=== PATIENT | female | born 1950 | race Caucasian/White ===

== ENCOUNTER 2024-04-21 06:06 | Inpatient (IN) ==
--- NOTE | 2024-04-03 14:59 | PAT Medication Instructions ---
Medication Instructions Date of Service April 03, 2024 Home Medications naproxen sodium 220 mg tablet (Aleve) 220 mg PO DAILY PRN multivitamin 1 tab PO QAM ASK your surgeon for instructions naproxen sodium 220 mg tablet (Aleve) 220 mg PO DAILY PRN DO NOT take the morning of surgery multivitamin 1 tab PO QAM Other Notes NOTHING TO EAT OR DRINK AFTER MIDNIGHT. If you have any questions please call us at [phone] or [phone] or [phone] or [phone]
--- NOTE | 2024-04-07 12:33 | Anesthesiology Consultation ---
Date of Service April 07, 2024 Assessment & Plan (1) Encounter for pre-operative examination: - Infectious disease screening: Per assessment on 04/07/24: No known recent infectious disease contacts or current infectious disease symptoms. - Patient acceptable risk for surgery pending surgeon-ordered PCP preop evaluation (Luis Fernando Kilgore, 04/12). Chart Review Chart Review: Patient seen in Pre Admission Testing Teaching & Discussion Pre-Anesthesia Teaching/Discussion Notes: Instructed NPO after midnight before surgery,except medications with 15 cc of water. Medication instructions provided according to the PAT guidelines. History Surgery Operation Date: 04/21/24 07:45 Proposed Procedures p C5-C6 Anterior Cervical Discectomy and Fusion - Chidi Arshad, Height/Weight Height: 5 ft 1 in Weight: 58.9 kg Allergies Allergy/AdvReac Type Severity Reaction Status Date / Time No Known Allergies Allergy Verified 03/31/24 14:13 Medications Home Medications Medication Instructions Recorded Confirmed Last Taken naproxen sodium 220 mg tablet 220 mg PO DAILY PRN Pain 03/20/20 03/31/24 Unknown (Aleve) multivitamin 1 tab PO QAM 03/31/24 03/31/24 Unknown Past Medical History Medical History Cervical herniated disc Cervical radiculopathy Right arm pain and weakness Chronic obstructive pulmonary disease "Well controlled" History of COVID-19 07/2021: severe flu-like symptoms with severe fatigue > resolved Exercise / Class Metabolic Activity II 4-5 Yardwork/Stairs/Walk up hill (one FS: No CP, no SOB) Past Family History Family History Other No family history of adverse response to anesthesia Past Surgical History Surgical History H/O right cataract extraction History of bilateral tubal ligation History of carpal tunnel release R/L History of colonoscopy History of left cataract surgery History of tooth extraction Full upper plate Hx of bladder repair surgery with sling S/P epidural steroid injection cervical Past Anesthesia History No Hx of Anesthesia Complications and No Family Hx of Anesthesia Complications History of PONV No Hx of PONV and No Hx of Motion Sickness Social History Smoking Status: Current every day smoker tobacco type: cigarettes Smoking cigarettes per day: 6-7 cigarettes/day (trying to decrease) Do You Dip or Chew Tobacco: No Hx Alcohol Use: Yes Alcohol type: wine alcohol intake frequency: holidays/special occasions only Hx Substance Use: No substance use type: does not use Review of Systems Patient denies chest pain, shortness of breath, dyspnea on exertion, fever, chills, cough, wheezing, palpitations. Physical Exam Vital Signs BP 134/74 P 68 TEMP 98.0 SP02 95%RA RESP 18 Physical Mildly decreased cervical extension range of motion. Full TMJ range of motion. TMD > 3.5 finger breaths Mallampati Score I Dentition: full upper denture, missing lower teeth Lungs: clear throughout to auscultation Cardiac: regular rate and rhythm, no murmurs noted Spine: normal Carotid arteries: negative bruit Extremities: no LE edema Lab Results Anesthesia Preop Results Results Anesthesia Widget: WBC 5.79 K/ul (4.8-10.8) 04/07/24 Hgb 12.9 g/dl (12.0-16.0) 04/07/24 Hct 41.3 % (37.0-47.0) 04/07/24 Plt 233 K/uL (130-400) 04/07/24 Na 139 mmol/L (136-145) 04/07/24 K 4.0 mmol/L (3.5-5.1) 04/07/24 Cl 104 mmol/L (98-107) 04/07/24 CO2 29 mmol/L (21-32) 04/07/24 BUN 9 mg/dl (6-23) 04/07/24 Creat 0.61 mg/dl (0.6-1.2) 04/07/24 Glucose Level 96 mg/dl (70-99(Fasting)) 04/07/24 PT 10.2 Seconds (9.0-12.0) 04/07/24 PTT 27 Seconds (21-31) 04/07/24 INR 0.9 (0.9-1.1) 04/07/24 HA1c 6.2 % (4.5-5.6) H 04/07/24 Urine Color Yellow 04/07/24 Urine Appearance Turbid (Clear) A 04/07/24 Urine pH 7.5 (4.5-7.5) 04/07/24 Urine Specific [place] 1.012 (1.000-1.030) 04/07/24 Urine Protein Negative (Negative) 04/07/24 Urine Glucose (UA) Negative (Negative) 04/07/24 Urine Ketones Negative (Negative) 04/07/24 Urine Blood Negative (Negative) 04/07/24 Urine Nitrite Negative (Negative) 04/07/24 Urine Bilirubin Negative (Negative) 04/07/24 Urine Urobilinogen Negative (Negative) 04/07/24 Urine Leukocyte Esterase Negative (Negative) 04/07/24 Urine WBC (Auto) 0-5 /hpf (0-5) 04/07/24 Urine RBC (Auto) 0-2 /hpf (0-2) 04/07/24 Urine Hyaline Casts (Auto) 0-2 /lpf (0-2) 04/07/24 Urine Epithelial Cells (Auto) 0-2 /hpf (0-2) 04/07/24 Urine Bacteria (Auto) None Seen (None Seen) 04/07/24 Blood Type O Positive 04/07/24 Antibody Screen NEGATIVE 04/07/24 Testing Electrocardiogram Date: 04/07/24 NSR at 66bpm. "Normal ECG" Chest X-Ray Date: 04/07/24 FINDINGS: Cardiac silhouette is normal. Mild hyperinflation with diaphragmatic flattening. There are a few calcified pulmonary granulomata noted within the left lung which are subcentimeter. No pneumothorax or pleural effusion. No airspace consolidation typical for pneumonia. Bones appear grossly intact. IMPRESSION: No acute process.
[2024-04-21] MEDS: LR 15ML/HR IV SCH (06:31)
[2024-04-21] MEDS: GABAPENTIN 300 MG CAP PO SCH (06:31)
[2024-04-21] MEDS: LR 60ML/HR IV SCH (06:32)
[2024-04-21] MEDS: CeleBREX 200 MG CAP PO SCH (06:32)
[2024-04-21] MEDS ORDERED: ePHEDrine sulfate 50 MG/ML AMP IV PRN (06:36)
[2024-04-21] MEDS ORDERED: ONDANSETRON INJ 2 MG/ML 2 ML VIAL IV PRN ×2 (06:36→11:18)
[2024-04-21] MEDS ORDERED: ATROPINE SULFATE 0.1 MG/ML 10ML SYR IV PRN (06:36)
[2024-04-21] MEDS ORDERED: ROCURONIUM BROMIDE 10 MG/ML 5 ML VIAL IV ONE ×2 (07:10→09:01)
[2024-04-21] MEDS ORDERED: fentaNYL citrate PF 100 MCG/2 ML VIAL ONE (07:10)
[2024-04-21] MEDS ORDERED: PROPOFOL IV EMULSION 10 MG/ML 20 ML VIAL IV ONE ×2 (07:10→09:01)
[2024-04-21] MEDS ORDERED: LIDOCAINE 2% 2 ML VIAL/AMP(20MG/ML) INFIL ONE (07:10)
--- NOTE | 2024-04-21 07:37 | History & Physical Bridge Note ---
Date of Service April 21, 2024 History & Physical Bridge Note I have examined the patient, reviewed the History & Physical and in the interval since the performance of the History & Physical I have noted the following changes of clinical significance: no changes noted
--- NOTE | 2024-04-21 07:38 | History & Physical Report ---
Date of Service April 21, 2024 Assessment & Plan (1) Cervical stenosis of spinal canal: Plan: C5-C6 anterior cervical discectomy and fusion History of Present Illness Chief Complaint: Neck and arm pain Primary Care Provider: Lisa Villarreal MD This is a 73-year-old female presents with chronic persistent neck and arm pain after failing course of nonoperative care she is here for surgical invention. Allergies Allergy/AdvReac Type Severity Reaction Status Date / Time No Known Allergies Allergy Verified 04/21/24 06:24 Home Medications Medication Instructions Recorded Confirmed Type naproxen sodium 220 mg tablet 220 mg PO DAILY PRN Pain 03/20/20 04/21/24 History (Aleve) multivitamin 1 tab PO QAM 03/31/24 04/21/24 History Past Med/Surg History Problem List (Updated 04/21/24 @ 07:38 by Chidi Arshad DO) Cervical stenosis of spinal canal Encounter for pre-operative examination Medical History Cervical herniated disc Cervical radiculopathy Right arm pain and weakness Chronic obstructive pulmonary disease "Well controlled" History of COVID-19 07/2021: severe flu-like symptoms with severe fatigue > resolved Surgical History H/O right cataract extraction History of bilateral tubal ligation History of carpal tunnel release R/L History of colonoscopy History of left cataract surgery History of tooth extraction Full upper plate Hx of bladder repair surgery with sling S/P epidural steroid injection cervical Family History Other No family history of adverse response to anesthesia Social History Smoking Status: Current every day smoker Tobacco Type: Cigarettes Cigarettes Per Day: 6-7 cigarettes/day (trying to decrease); Second Hand Exposure: No; Do You Dip or Chew Tobacco: No; Tobacco Cessation Education Requested by Patient: No Hx Alcohol Use: Yes Alcohol type: wine Hx Substance Use: No Preferred Language: [place] Islander Communication Ability: Effective Print Project Manager Required: No Beliefs That Will Affect Care: None Current Living Situation: Alone Other Information That Helps Us Care for You: No Feels Safe at Home: Yes Safety Concerns: Feels Safe At This Time Assistive Devices: Denture - Upper and Glasses Physical Exam Physical Exam: Patient is alert and oriented Heart regular in rhythm Lungs clear Results & Data Results & Data Vital Signs (Past 12 Hours) Vital Signs Temp Pulse Resp BP Pulse Ox O2 Del Method 04/21/24 06:36 36.6 C 68 18 164/89 H 97 Room Air
[2024-04-21] MEDS: ceFAZolin 2000MG 2,000 MG/15 ML SYR IV SCH (07:49)
[2024-04-21] MEDS: ceFAZolin 330 MG/ML 1 GM VIAL ONE (08:45)
[2024-04-21] MEDS: FLOSEAL HEMOSTATIC MATRIX 10ML TOP ONE (08:51)
[2024-04-21] MEDS ORDERED: ONDANSETRON INJ 2 MG/ML 2 ML VIAL ONE (08:59)
[2024-04-21] MEDS ORDERED: DEXAMETHASONE SOD INJ 4 MG/ML VIAL ONE (08:59)
[2024-04-21] MEDS ORDERED: SUGAMMADEX SODIUM 200 MG/2 ML VIAL IV ONE (09:00)
--- NOTE | 2024-04-21 09:02 | Operative Report ---
Post Operative Report Pre & Post Diagnosis Operation Date: 04/21/24 07:45 Pre-Op Diagnosis: cervical spinal stenosis with nucleus pulposus and radiculopathy Post-Op Diagnosis: Same I identified the patient and participated in the time-out.: Yes Procedure Operation Date: 04/21/24 07:45 Actual Procedures #1 anterior cervical discectomy with bilateral foraminotomies C5-C6. #2 anterior cervical basis C5-C6 per #3 placement of Spira 9 mm cage filled with os design C5-C6. #4 application of is plate and screws across C5-C6. Surgeon Chidi Arshad, Cane Weigher Helper John Cleary Estimated Blood Loss 25 Findings Consistent with Post-Op Diagnosis Specimens None Indications This is a 73-year-old female presents problems diagnosis after failing course of nonoperative care is here for surgical invention. Description of Procedure Patient was met with identified informed consent obtained. Patient was then taken to the operative suite underwent ablation placed in spine position on the Nhan table with a head Royal head men's tennis coach. All bony promises well-padded eyes inspected to ensure no external pressure placed upon them. This point the anterior cervical spine was prepped and draped in a sterile fashion. The assistance of fluoroscopy identified the C5-C6 disc base and a transverse incision was placed along the right anterior aspect of the cervical spine overlying his region. Blunt dissection with assistance of bipolar electrocautery is performed to expose the anterior cervical spine at C5-C6. Self-retaining retractors placed. Informed complete discectomy C5-C6 out to the uncovertebral joints bilaterally. [place] distracting pins utilized to assist in visualization. I removed all posterior annular fibers longitudinal ligament bilateral foraminotomies performed. Endplates burred to subcortical bleeding bone and 9 mm spiral cage filled with os design bone graft apposition. Distracting and pressors removed and the plate and screws applied with the assistance of fluoroscopy. The incision was then copiously irrigated explored to ensure no damage to surrounding structures or remaining bleeding. 10 round NED drain inserted. The incision was then closed with 2 Vicryl in the fascia and 4 Monocryl for final skin closure. Steri-Strips sterile dressing placed. Patient waken taken to PACU stable condition. Please note spinal cord monitoring was utilized after procedure no changes noted. Lastly John Cleary was present throughout the entire procedure and all the patient positioning complex portion of the surgery and final skin closure. Im ordering 10 grams of Triple Lott Collagen Powder ([facility] [id number]) to treat an incision wound that was caused by a spine procedure. The incision is approximately 2 cm(W) x 4 cm(L) into the joint (D) in size and is a full thickness wound. Triple Lott collagen comes in 1 gram packets so 10 packets were ordered. Given the size of the wound, with light to moderate exudate I chose to order a 10 day supply. The patient will be provided instructions for proper application of the collagen wound kit. The patient will be asked to apply the collagen powder daily and then cover it with sterile dressings dispensed. Collagen was selected as I expect the collagen to attract monocytes and fibroblasts, act as a sacrificial substrate for MMPs, and ultimately proved a matrix for tissue and vessel growth. The collagen will act as a primary dressing in this scenario. It is medically necessary for proper healing of these wounds to improve bioavailability and contact with each wound surface, this is also to help prevent infection of wounds and promote healing ultimately leading to a better healing outcome and limit the risk of infection. I attest to the content of the Intraoperative Record and any orders documented therein. Any exceptions are noted below.
[2024-04-21] MEDS: fentaNYL citrate PF 100 MCG/2 ML VIAL IV PRN (09:28)
--- NOTE | 2024-04-21 10:13 | Fluoroscopy Report ---
FL cervical 2-3V CLINICAL HISTORY: C5-C6 ACDF TECHNIQUE: 2 views were obtained with the C-arm in the OR with the above procedure. Total fluoroscopy time was 10.2 seconds. Radiation dose was 0.78 mGy. Comparison: Comparison is made to chest radiograph 04/07/2024 FINDINGS/IMPRESSION: Intraoperative images were obtained of the ACDF placement at C5-C6. Please correlate with intraoperative fluoroscopy and operative report. ACT 112: Negative or not required by law. Electronically signed by: Ar Diaz M.D. 04/21/2024 10:12 AM
--- NOTE | 2024-04-21 10:16 | Anesthesiology Progress Note ---
Date of Service April 21, 2024 Anesthesia Post Procedure Vital Signs Vital Signs: Temp Pulse Pulse Resp BP BP Pulse Ox 04/21/24 10:15 65 12 147/79 H 96 04/21/24 10:05 63 12 154/61 H 96 04/21/24 09:55 66 10 L 162/71 H 92 04/21/24 09:45 64 12 152/70 H 96 04/21/24 09:35 66 12 170/73 H 97 04/21/24 09:25 67 12 191/75 H 100 04/21/24 09:18 96.8 F L 69 14 173/74 H 95 04/21/24 06:36 97.9 F 68 18 164/89 H 97 O2 Del Method O2 Flow Rate 04/21/24 10:15 Nasal Cannula 3 04/21/24 10:05 Nasal Cannula 3 04/21/24 09:55 Nasal Cannula 3 04/21/24 09:45 Oxymask 3 04/21/24 09:35 Oxymask 4 04/21/24 09:25 Oxymask 6 04/21/24 09:18 Oxymask 6 04/21/24 06:36 Room Air Pain Intensity Anterior Neck: Pain Intensity: 5 Transfer of Care Handoff Completed per policy Notes Mental Status: alert / awake / arousable and participated in evaluation Patient Amnestic to Procedure: Yes Nausea / Vomiting: adequately controlled Pain: adequately controlled Airway Patency, RR, SpO2: stable & adequate BP & HR: stable & adequate Hydration State: stable & adequate Anesthetic Complications: no major complications apparent and Pt Satisfied with anesthetic care
--- OUTSIDE RECORDS SUMMARY | 2024-04-21 10:50 | External Medical Summary | Summary of Care ---
Author Name Unknown Organization [facility] Address [address] [place] [address] Phone [phone] Care Team Providers Care Customs Brokerage Manager Name Role Phone Lisa Villarreal MD Primary Care Provider [phone] Reason for Visit * Reason Onset Date Comments Preop Pt Assessment 04/12/2024 Physical bef ore surgery HISTORY and PHYSICAL 04/12/2024 Encounter Details Date Type Department Care Team (Late st Contact Info) Description 04/12/2024 11:00 AM EDT [facility] [address] [facility] [place] [address] Mandeep Lee MD [address] [place] [address] Pre-operative examination*; Osteoarthritis of spine with radiculopathy, cervical region Allergies No known active allergiesdocumented as of this encounter (statuses as of 04/13/2024) Medications Medication Sig Dispensed Refills Start Date End Date Status Fluticasone Propionate 50 MCG/ACT Nasal Suspension (Flonase)Indication s:Acute serous otitis media of left ear, recurrence not specified Administer 2 Sprays into each nostril in the morning. 11.1 mL 3 11/02/2022 4 Discontinue d(Medicatio n List Clean Up) Vitamin D3 1000 UNIT Oral CapsuleIndications: Vitamin D insufficiency Take 1 Capsule by mouth daily. 09/28/2023 4 Discontinue d(Medicatio n List Clean Up) Naproxen Sodium 220 MG Oral Tablet (Aleve) Take 2 Tablets by mouth 2 times a day with morning and evening meals. 4 Discontinue d(Medicatio n List Clean Up) diazePAM 5 MG Oral Tablet (Valium)Indications :Cervical radiculopathy Take 1 tab 1 hour prior to scheduled procedure 1 Tablet 10/13/2023 4 Discontinue d(Medicatio n List Clean Up) tiZANidine HCl 2 MG Oral Tablet (Zanaflex) Take 1 Tablet by mouth every 12 hours as needed for Muscle spasms. 40 Tablet 11/23/2023 4 Discontinue d(Medicatio n List Clean Up) documented as of this encounter (statuses as of 04/13/2024) Active Problems Problem Noted Date Diagnosed Date Vitamin D insufficiency 09/28/2023 Tubular adenoma of colon 03/06/2020 Age-related osteoporosis wit hout current pathological fracture 01/16/2019 Overview: By DEXA ADVANCE DIRECTIVE INFORMATION 07/11/2005 Overview: No, Advance Directive brochure offered , patient declined. Family history of ischemic heart disease 003 Tobacco use disorder 12/04/2002 Hyperlipidemia with target LDL less than 130 Overview: ICD-10 update of inactive term Female stress incontinence Vaginal prolapse documented as of this encounter (statuses as of 04/13/2024) Resolved Problems Problem Noted Date Diagnosed Date Resolved Date Duodenitis 05/01/2011 12/14/2018 Overview: per UGI at ICD-10 update of inactive term Carpal tunnel syndrome 12/27/200712/14 Overview: Left on EMG Family history of other card iovascular diseases 07/11/2005 09/11/2010 Overview: ICD-10 update of inactive term EXT HEMRRHOID W COMP NEC 12/04/200206/2019 documented as of this encounter (statuses as of 04/13/2024) Immunizations Name Administration Dates Next Due Season Influenza, Cell Cultu re, 18+ Yrs, With Preserv (Flucelvax) 09/25/2013 Seasonal Influenza, Quadriva lent, No Preserve, IM 05/18/2016,06/17/2015 Seasonal Influenza, Split, I IV3, With Preserve, Inj 10/03/2014,09/11/2011,07/04/2009, 0 08,06/25/2007(Deferred: - Done Elsewhere) TD - Tetanus/Diptheria (ADULT) 03/19/2003 TDAP (age 10 and older)(Boostrix) 05/16/2022 TDAP, Age 7 and older, IM (Adacel) 12/25/2011 documented as of this encounter Social History Tobacco Use Types Packs/Day Years Used Date Smoking Tobacco: Every Day Cigarettes 0.5 34 Smokeless Tobacco: Never Tobacco Cessation:Ready to Q uit: Not Asked; Counseling Given: Not Answered Comments:hasn't smoked in approx 2-3 weeks Alcohol Use Standard Drinks/Week Comments No 0 (1 standard drink = 0.6 oz pur e alcohol) PHQ-2 Answer Date Recorded PHQ Adult Total Score 0 09/27/2023 Hunger Vital Sign Answer Date Recorded Within the past 12 months, y ou worried that your food would run out before you got the money to buy more. Never true 09/27/19 24 Within the past 12 months, t he food you bought just didn't last and you didn't have money to get more. Never true 09/27/2023 Childcare Answer Date Recorded Do you feel overwhelmed with taking care of a child, family member or friend? No 09/27/2023 Does your family need help f inding childcare? (Household - for ages 0-17 years) Not on file 09/27/2023 Clothing Answer Date Recorded Have you been unable to get clothing when it was really needed? No 09/27/2023 Is your family able to get c lothes or diapers when needed? (Household - for ages 0-17 years) Not on file 09/27/2023 Personal Safety Answer Date Recorded Do you feel unsafe or have concerns for your saf ety? No 09/27/2023 Do you have concerns for you r family's safety? (Household - for ages 0-17 years) Not on file 09/27/2023 Utilities Answer Date Recorded Do you have trouble paying y our heating, water, or electric bill? No 09/27/2023 Is your family able to pay t he heat, water, or electric bill? (Household - for ages 0-17 years) Not on file 09/27/2023 Does your family have access to good internet? (Household - for ages 0-17 years) Not on file 09/27/2023 Employment Status Answer Date Recorded Are you unemployed or without regular income? No 09/27/2023 Does the household have a re gular source of income? (Household - for ages 0-17 years) Not on file 09/27/2023 Social Connections Answer Date Recorded How often do you feel lonely or isolated from th ose around you? Rarely 09/27/2023 Financial Resource Strain Answer Date R ecorded Do you have any trouble payi ng for your medications, or do you think you might in the future? No 09/27/2023 Does your family have troubl e paying for medicine? (Household - for ages 0-17 years) Not on file 09/27/2023 Transportation Needs Answer Date Record ed READ ONLY Do you have troubl e getting a ride to medical visits or work? Never True 09/27/2023 Does your family have a hard time getting a ride to doctors visits? (Household - for ages 0-17 years) Not on file 09/27/2023 Has lack of transportation k ept you from medical appointments, meetings, work, or from getting things needed for daily living? Check all that apply. (Adult - for ages 18 years and over) Not on file 09/27/2023 Do you (or your family) have trouble finding or paying for a ride (transportation)? (Household - for ages 0-17 years) Not on file 09/27/2023 Housing Stability Answer Date Recorded Do you currently live in a s helter or have no steady place to sleep at night? No 09/27/2023 READ ONLY Do you think you a re at risk of becoming homeless? No 09/27/2023 Does your family worry about paying for your home or becoming homeless? (Household - for ages 0-17 years) Not on file 0 09/27/2023 Are you homeless or worried that you might be in the future? (Adult - for ages 18 years and over) Not on file Are you (or your family) huy eless or worried that you might be in the future? (Household - for ages 0-17 years) Not on file Food Insecurity Answer Date Recorded Do you need food for this week? No 09/27/2023 Are you able to get enough f ood for your family? (Household - for ages 0-17 years) Not on file 09/27/2023 Does your family need food t his week? (Household - for ages 0-17 years) Not on file 09/27/2023 Do you always have enough fo od for your family? (Household - for ages 0-17 years) Not on file 09/27/2023 Sex and Gender Information Value Date Recorded Sex Assigned at Female 02/28/2021 10:37 AM EDT Gender Identity Female 02/28/2021 10:37 AM EDT Sexual Orientation Straight 02/28/2021 10 :37 AM EDT Job Start Date Occupation Industry Not on file Not on file Not on file documented as of this encounter Last Filed Vital Signs Vital Sign Reading Time Taken Comments Blood Pressure 130/70 04/12/2024 11:06 AM EDT Pulse 82 04/12/2024 11:06 AM EDT Temperature 35.7 C (96.3 F) 04/12/2024 1 1:06 AM EDT Respiratory Rate 20 04/12/2024 11:0 6 AM EDT Oxygen Saturation 97% 04/12/2024 11: 06 AM EDT Inhaled Oxygen Concentration - - Weight 58.4 kg (128 lb 12.8 oz) 024 11:06 AM EDT Height 154.9 cm (5' 1") 04/12/2024 11:0 6 AM EDT Body Mass Index 24.34 04/12/2024 11:06 AM EDT documented in this encounter Progress Notes * Micaela Magdaleno LPN - 04/13/2024 6:02 PM EDT Pts pre op clearance form and EKG faxed to [facility] * Mandeep Lee MD - 04/12/2024 8:04 AM EDT Images from the original note were not included. Pre-Operative Medical Evaluation Procedure Information Type of Surgery: C5-C6 Anterior Cervical discectomy and fusion Referring Physician / Surgeon: [place]. Chidi Arshad [facility] [place] of procedure: 04/21/2024 Brief History of Present Illness: Neck, R-shoulder pain, numbness down R-arm into fingers Review of Systems: Constitutional: Negative Eyes: Negative Ears: Negative and No loss of hearing Nose: Negative Mouth/Throat: Negative, No difficulty swallowing, No snoring, No history of sleep apnea, No historyof difficult intubation, Upper teeth dentures Neck: Negative and No known carotid artery disease Pulmonary: No shortness or breath, No history of pulmonary embolism, No history of asthma, and SMOKER 0.5 pack per day, last 10 days cut down to 6 cigarettes a day Cardiac: No chest pain, No angina, No syncope, No palpitations, No shortness of breath, No orthopnea, and No edema GI/Abd: No dysphagia, No abdominal pain, No melana or hematochezia, No significant heartburn, and No history of liver disease Vascular: Negative Hematologic: No coagulation disorder, No anemia, and No abnormal bleeding Musculoskeletal: Negative and see HPI Skin: negative Neurologic: No syncope Endocrine No Diabetes and No Thyroid abnormalities, denies history and/or Fhx of malignant hyperthermia Psychiatric: No depression and No anxiety Allergy/Immunology: No contrast dye allergy and No wheezing, sneezing or itchy eyes Post Surgery Plan: Daughters will accompany to surgery; surgery requires overnight stay; post surgery will stay with daughter Medical History Problem List: Vitamin D insufficiency (09/28/2023) Tubular adenoma of colon (03/06/2020) Age-related osteoporosis without current pathological fracture (2018) Duodenitis (05/01/2011) Carpal tunnel syndrome (12/27/2007) ADVANCE DIRECTIVE INFORMATION (07/11/2005) Family history of other cardiovascular diseases (07/11/2005) EXT HEMRRHOID W COMP NEC (12/04/2002) Family history of ischemic heart disease (12/04/2002) Tobacco use disorder (12/04/2002) Hyperlipidemia with target LDL less than 130 Female stress incontinence Vaginal prolapse Current Medications No current outpatient medications on file. Allergies: Patient has no known allergies. Past Medical History: has a past medical history of Age-related osteoporosis without current pathological fracture (01/16/2019), Age-related osteoporosis without current pathological fracture (12/2021), Carpal tunnel syndrome, Duodenitis without mention of hemorrhage (05/01/2011), External hemorrhoids with other complication (1990), Fam hx-cardiovas dis NEC, Female stress incontinence (09/2014), Hyperlipidemia LDL goal < 130, Tubular adenoma of colon (03/2020), Vaginal prolapse (10/2015), and Vitamin D insufficiency (09/27/2023). Past Surgical History: has a past surgical history that includes carpal tunnel surgery (1986); ligate/cut oviduct(s) (1977); dexa scan/bone mineral preiph (02/06); colonoscopy (08/19/07); emg 1 extremity (12/12); NM Myocardial Perfusion SPECT Multiple with Pharmacologic Intervention (02/21/10); emg 1 extremity (04/09/10); Fluoro Upper GI with KUB (05/01/11); EGD, Flexible, w/Biopsy (07/20/11); repair of vagina (N/A, 10/21/2015); repair bladder defect (N/A, 10/21/2015); genital surgery procedure nec (N/A, 07/22/2016); DEXA Scan Bone Mineral Axial (01/2019); remove cataract, insert lens prosth (Left, 04/02/2020); Colonoscopy, Diagnostic (Rectum) (N/A, 04/08/2020); remove cataract, insert lens prosth (Right, 04/23/2020); and Inject Dx/Ther Substance Interlaminar Cervical/Thoracic W Image Guide (N/A, 11/01/2023). Social History: reports that she has been smoking cigarettes. She has a 17 pack-year smoking history. She has neverused smokeless tobacco. She reports that she does not drink alcohol and does not use drugs. Family History: family history includes COPD in her other; Cancer in her aunt (unspecified); Heart Disorder in her brother, father, and mother; Renal Hx in her mother; brittle bones (OI) in an other family member; kidney stones in her father. Anesthesia History Type of Anesthesia: General Anesthesia reaction: No History of surgical complications: None Personal history of venous thromboembolic disease: None Physical Exam Vitals: 04/12/24 1106 Temp: 35.7 C (96.3 F) Pulse: 82 Resp: 20 SpO2: 97% BP: 130/70 BMI: 24.35 Physical Exam: General: alert, healthy, no distress, well nourished, comfortable, and cooperative Head: Normocephalic, No masses, lesions, tenderness or abnormalities Eye Exam: PERRLA, extraocular movements intact, conjunctiva are pink and non- injected, sclera clear Oropharynx: no exudate, no erythema, lips, buccal mucosa, and tongue normal, and mucous membranes are moist Neck: supple, no adenopathy, thyroid normal size, non-tender, without nodularity Lymph: no palpable lymphadenopathy Heart: regular rate & rhythm, no murmur, and no gallops Lungs: lungs clear to auscultation Extremities: no joint deformities, effusion, or inflammation, no edema Neuro Exam: alert & oriented x 3 with fluent speech, no focal motor/sensory deficits, gait normal, reflexes normal and symmetric Skin: no rashes or significant lesions Offsite Labs reviewed and are significant for: A1c 6.2 EKG by my review is significant for: Pending Surgical Risk Scoring Revised Cardiac Risk Index (RCRI) High-risk type of surgery (examples include vascular and any open intraperitoneal or intrathoracic procedures): 0=No History of ischemic heart disease (history of myocardial infarction or positive exercise test, current compliant of chest pain considered to be secondary to myocardia ischemia, use of nitrate therapy, or ECG with pathological Q waves; do not count prior coronary revascularization procedure unless one of the other criteria for ischemic heart disease is present): 0=No History of heart failure: 0=No History of cerebrovascular disease: 0=No Diabetes mellitus requiring treatment with insulin: 0=No Preoperative serum creatinine >2.0 mg/dL (177 micromol/L): 0=No Pt has revised cardiac index score of: No Risk Factors- 0.4% (95% CI: 0.1-0.8) Screening for Obstructive Sleep Apnea (STOP-BANG) Do you Snore loudly? 1=Yes Do you often feel Tired, Fatigued, or Sleep? 0=No Has anyone Observed you Stop Breathing or Choking/Gasping during sleep? 0=No Do you have or are you being treated for High Blood Pressure? 0=No BMI over 35? 0=No Age older than 50? 1=Yes Neck size large? (For males - 17 inches or larger, For females - 16 inches or larger) 0=No Male? 0=No Score 0-2:low risk NOEMI, 3-4: intermediate risk of NOEMI, 5-8: high risk NOEMI 1 Assessment and Plan Functional Assessment They are able to walk up a flight of stairs, walk two blocks at a moderate pace, do heavy house work like vacuuming, and grocery shop. The patient's functional status is good (greater than 4 METS). 1 MET: 4 METs: 4-10 METs: Can take care of self, such as eat, dress or use the toilet. Can walk to block or go up a flight of steps. Can do heavy house work. Surgical Risk Assessment Patient is low medical risk for the listed procedure. Medication adjustments: No medications are prescribed through our practice Additional consults or testing: None [facility] Labs and EKG wnl I do not expect any medical complications from planned procedure I have discussed the patient's management with the medical trainee and agree with the note. Please refer to the documented findings and plan of care. This patient's visit today consisted of an [facility]. I was present with the resident during the history and exam and confirm the findings. Lisa Villarreal MD documented in this encounter Nursing Notes * Merary Rios CCMA - 04/12/2024 11:05 AM EDT Chief Complaint Patient presents with Preop Pt Assessment Physical before surgery HISTORY and PHYSICAL Patient has been verbally educated on the need or importance of Immunizations: pneumoccal, shingx, and has declined topic(s). documented in this encounter Plan of Treatment Upcoming Encounters Date Type Department Care Team (Late st Contact Info) Description 10/16/2024 3:20 PM EST Office Visit [address] [address] Lisa Villarreal MD [address] [place] [address] Scheduled Orders Name Type Priority Associated Diagnoses Orde r Schedule EKG EKG Routine Pre-operative examination Expected: 04/12/2024, Expires: 05/13/2025 Scheduled Procedures Name Priority Associated Diagnoses Date/Ti me COLONOSCOPY FLEXIBLE PROXIMA L DIAGNOSTIC Recall History of colonic polyps Health Maintenance Due Date Last Done Comments Pneumococcal Vaccine: 65+ Years (1 of 2 - PCV) 1958 Cologuard 1997 Sigmoidoscopy 1997 Zoster Vaccines (1 of 2) 2002 Fecal Occult Blood Test 10/19/2017 10/19/19 17, 10/09/2015, 10/03/2014, Additional history exists Adult Wellness Visit 2018 *BISPHONATE OR OTHER ACCEPTABLE MEDICATION NEEDED FOR OSTEOPOROSIS (REFER TO SMARTSET #1146) 03/05/2021 COVID-19 Vaccine ( season) 2023 DXA Scan 12/17/2023 12/16/2021, 01/16/2019 Influenza Vaccine (FLU shot) (#1) 2024 05/18/2016, 06/17/2015, 10/03/2014, Additional history exists Depression Screening 09/27/2024 09/27/2023 Mammogram 10/07/2024 10/07/2023, 05, 12/15/2021, Additional history exists Colonoscopy 04/08/2025 04/08/2020, 0811/2019, 08/19/2007 Colorectal Cancer Screening 04/08/2025 Lipid Panel 09/27/2028 09/27/2023, 0204/2023, 03/13/2021, Additional history exists DTaP,Tdap,and Td Vaccines (3 - Td or Tdap) 05/16/2032 05/16/2022, 12/25/2011, 03/19/2003 RETIRED - COLONOSCOPY-EVERY 5 YRS AGES 18-100 Discontinued 04/08/2020, 04/08/2020, 08/19/2007 VITAMIN D LEVEL ONCE IN A LIFETIME-USE SMARTSET# 87020 Completed 09/27/2023, 03/13/2021 HPV (Gardasil) Vaccine Aged Out No lo nger eligible based on patient's age to complete this topic Hepatitis B Vaccine Aged Out No longe r eligible based on patient's age to complete this topic MENINGOCOCCAL (MENACTRA/MENVEO) Aged Out No longer eligible based on patient's age to complete this topic documented as of this encounter Medical Devices Implanted Type Area Clay Molder Device Identifier Shelf Expiration Date Model / Serial / Lot Obtryx Ii System - [id number] Implanted:Qty: 1 on 10/21/2015 by Annamarie Parker MD at OR [facility] N/A: Pelvis [employer] 07/25/2018 [id number] / / [id number] documented as of this encounter Visit Diagnoses Diagnosis Pre-operative examination- Primary Preoperative examination, unspecified Osteoarthritis of spine with radiculopathy, cervical region documented in this encounter Advance Directives * Full Code (Latest Code Status on File) Date Activated Date Inactivated Comments 07/22/2016 12:43 PM 07/22/2016 8:37 PM This orde r reflects the patients wishes and were consensually agreed upon. Question Answer Comments Discussion of Advance Directives occurred with: Patient Does the patient have a Living Will? No Does the patient have Health Care Power of Attor berry? No * Full Code Date Activated Date Inactivated Comments 07/22/2016 11:09 AM 07/22/2016 12:43 PM This ord er reflects the patients wishes and were consensually agreed upon. Question Answer Comments Discussion of Advance Directives occurred with: Patient Does the patient have a Living Will? No Does the patient have Health Care Power of Attor berry? No * Full Code Date Activated Date Inactivated Comments 10/21/2015 10:45 AM 10/22/2015 2:52 PM This order reflects the patients wishes and were consensually agreed upon. Question Answer Comments Discussion of Advance Directives occurred with: Not Discussed Does the patient have a Living Will? No Does the patient have Health Care Power of Attor berry? No Care Teams Customs Brokerage Manager Relationship Specialty Start Date End Date Lisa Villarreal MD [address] [facility] [address] [place] [address] PCP - General 10/04/02 documented as of this encounter
--- OUTSIDE RECORDS SUMMARY | 2024-04-21 10:50 | External Medical Summary | Summary of Care ---
Author Name Unknown Organization [facility] Address [address] [place] [address] Phone [phone] Care Team Providers Care Staff Design Engineer Name Role Phone Lisa Villarreal MD Primary Care Provider [phone] Reason for Visit * Reason Onset Date Comments Preop Pt Assessment 04/12/2024 Physical bef ore surgery HISTORY and PHYSICAL 04/12/2024 Encounter Details Date Type Department Care Team (Late st Contact Info) Description 04/12/2024 11:00 AM EDT Office Visit [facility] [address] [place] [address] Mandeep Lee MD [address] [place] [address] Pre-operative examination* Allergies No known active allergiesdocumented as of this encounter (statuses as of 04/12/2024) Medications Medication Sig Dispensed Refills Start Date [...] as of this encounter (statuses as of 04/12/2024) Active Problems Problem Noted Date Diagnosed Date [...] as of this encounter (statuses as of 04/12/2024) Resolved Problems Problem Noted Date Diagnosed Date Resolved Date Duodenitis 05/01/2011 12/14/2018 Overview: per UGI at ICD-10 update of inactive term Carpal tunnel syndrome 12/27/200712/14 Overview: Left on EMG Family history of other card iovascular diseases 07/11/2005 09/11/2010 Overview: ICD-10 update of inactive term EXT HEMRRHOID W COMP NEC 12/04/200206/2019 documented as of this encounter (statuses as of 04/12/2024) Immunizations Name Administration Dates Next Due Season Influenza, Cell Cultu re, 18+ Yrs, With Preserv (Flucelvax) 09/25/2013 Seasonal Influenza, Quadriva lent, No Preserve, IM 05/18/2016,06/17/2015 Seasonal Influenza, Split, I IV3, With Preserve, Inj 10/03/2014,09/11/2011,07/04/2009, 0 08,06/25/2007(Deferred: - Done Elsewhere) TDAP (age 10 and older)(Boostrix) 05/16/2022 TDAP, [...] 11:06 AM EDT documented in this encounter Nursing Notes * [...] Description 10/16/2024 3:20 PM EST Office Visit [facility] [place] [address] [place] [address] Lisa Villarreal MD [address] [place] [address] Scheduled Orders Name Type Priority Associated Diagnoses [...] 12/15/2021, Additional history exists Colonoscopy 04/08/2025 04/08/2020, 11/2019, 08/19/2007 Colorectal Cancer Screening 04/08/2025 Lipid Panel 09/27/2028 09/27/2023, 0204/2023, 03/13/2021, Additional history exists DTaP,Tdap,and Td Vaccines (3 - Td or Tdap) 05/16/2032 05/16/2022, 12/25/2011, 03/19/2003 RETIRED - COLONOSCOPY-EVERY 5 YRS AGES 18-100 Discontinued 04/08/2020, 04/08/2020, 08/19/2007 VITAMIN D LEVEL ONCE IN A LIFETIME-USE SMARTSET# [id number] Completed 09/27/2023, 03/13/2021 HPV (Gardasil) Vaccine Aged Out No lo nger eligible based on patient's age to complete this topic Hepatitis B Vaccine Aged Out No longe r eligible based on patient's age to complete this topic MENINGOCOCCAL (MENACTRA/MENVEO) Aged Out No longer eligible based on patient's age to complete this topic documented as of this encounter Medical Devices Implanted Type Area Facility Sales And Admin Device Identifier Shelf Expiration Date Model / Serial / Lot Obtryx Ii System - [id number] Implanted:Qty: 1 on 10/21/2015 by Annamarie Parker MD at OR [facility] N/A: Pelvis [employer] 07/25/2018 [id number] / / [id number] documented as of this encounter Visit Diagnoses Diagnosis Pre-operative examination- Primary Preoperative examination, unspecified documented in this encounter Advance Directives * [...] Power of Attor berry? No Care Teams Staff Design Engineer Relationship Specialty Start Date End Date Lisa Villarreal MD [address] [place] [address] PCP - General 10/04/02 documented as of this encounter
--- OUTSIDE RECORDS SUMMARY | 2024-04-21 10:50 | External Medical Summary | Summary of Care ---
Author Name Unknown Organization [facility] Address [address] [place] [address] Phone [phone] Care Team Providers Care Restorative Care Technician Name Role Phone Lisa Villarreal MD Primary Care Provider [phone] Reason for Visit * Reason Onset Date Comments Preop Pt Assessment 04/12/2024 Physical bef ore surgery HISTORY and PHYSICAL 04/12/2024 Encounter Details Date Type Department Care Team (Late st Contact Info) Description 04/12/2024 11:00 AM EDT Office Visit [facility] [address] [place] [address] Mandeep Lee MD [address] [place] [address] Pre-operative examination*; Osteoarthritis of spine with radiculopathy, [...] documented in this encounter Progress Notes * Mandeep Lee MD - 04/12/2024 8:04 AM EDT Images from the original note were not included. Pre-Operative Medical Evaluation Procedure Information Type of Surgery: C5-C6 Anterior Cervical discectomy and fusion Referring Physician / Surgeon: KRISTEL Lucio Date of procedure: 04/21/2024 Brief History of [...] Description 10/16/2024 3:20 PM EST Office Visit [facility] [place] [address] [facility] [place] [address] Lisa Villarreal MD [address] [facility] [place] [id number] Scheduled Orders Name Type Priority Associated Diagnoses [...] D LEVEL ONCE IN A LIFETIME-USE SMARTSET# [id number] Completed 09/27/2023, 03/13/2021 HPV (Gardasil) Vaccine Aged Out No lo nger eligible based on patient's age to complete this topic Hepatitis B Vaccine Aged Out No longe r eligible based on patient's age to complete this topic MENINGOCOCCAL (MENACTRA/MENVEO) Aged Out No longer eligible based on patient's age to complete this topic documented as of this encounter Medical Devices Implanted Type Area Engine Lathe Set Up Operator Device Identifier Shelf Expiration Date Model / Serial / Lot Obtryx Ii System - [id number] Implanted:Qty: 1 on 10/21/2015 by Annamarie Parker MD at OR [facility] N/A: Pelvis [employer] 07/25/2018 [id number] / / [id number] documented as of this encounter Visit Diagnoses [...] Power of Attor berry? No Care Teams Restorative Care Technician Relationship Specialty Start Date End Date Lisa Villarreal MD [address] [facility] [place] [address] PCP - General 10/04/02 documented as of this encounter
[2024-04-21] MEDS ORDERED: ONDANSETRON 4 MG OD TAB PO PRN (11:18)
[2024-04-21] MEDS ORDERED: dexAMETHasone 8 MG in SYRINGE 0 ML IV PRN (11:18)
[2024-04-21] MEDS ORDERED: NALOXONE HCL 0.4 MG/1 ML VIAL/CARP IV PRN (11:18)
[2024-04-21] MEDS ORDERED: RACEPINEPHRINE 2.25% NEBU SOLN 0.5 ML VIAL INH PRN (11:18)
[2024-04-21] MEDS ORDERED: ALUMINUM/MAGNESIUM SUSP 30 ML UDC PO PRN (11:18)
[2024-04-21] MEDS ORDERED: LORazepam 0.5 MG in SYRINGE 0.25 ML IV PRN (11:18)
[2024-04-21] MEDS ORDERED: DO NOT ADMINISTER PNEUMOCOCCAL VACCINE PRN (11:18)
[2024-04-21] MEDS ORDERED: hydrOXYzine HCl 25 MG TAB PO PRN (11:18)
[2024-04-21] MEDS ORDERED: ACETAMINOPHEN 500 MG TAB PO PRN (11:18)
[2024-04-21] MEDS ORDERED: MAGNESIUM HYDROXIDE SUSP 30 ML UDC PO PRN (11:18)
[2024-04-21] MEDS ORDERED: LORazepam 0.5 MG TAB PO PRN (11:18)
[2024-04-21] MEDS ORDERED: DO NOT ADMINISTER FLU VACCINE PRN (11:18)
[2024-04-21] MEDS ORDERED: HYDROmorphone INJ 1 MG/ML SYRINGE IV PRN (11:18)
[2024-04-21] MEDS ORDERED: traMADol HCL 50 MG TABLET PO PRN (11:18)
[2024-04-21] MEDS ORDERED: METOCLOPRAMIDE HCL INJ 5 MG/ML 2 ML VIAL IV PRN (11:18)
[2024-04-21] MEDS ORDERED: SOD PHOSPHATE/SOD BIPHOSPHATE ENEMA 132 ML BTL PR PRN (11:18)
[2024-04-21] MEDS ORDERED: diphenhydrAMINE Capsule 25 MG CAP PO PRN (11:18)
[2024-04-21] MEDS ORDERED: bisacodyL 10 MG SUPP PR PRN (11:18)
[2024-04-21] MEDS ORDERED: PROMETHAZINE 12.5 MG/50.5 ML BAG IV PRN (11:18)
[2024-04-21] MEDS ORDERED: HYDROmorphone INJ 0.5 MG/0.5 ML SYR IV PRN (11:18)
[2024-04-21] MEDS ORDERED: FAMOTIDINE 20 MG TAB PO PRN (11:18)
[2024-04-21] MEDS ORDERED: ACETAMINOPHEN 1,000 MG/100 ML VIAL IV PRN (11:18)
[2024-04-21] MEDS: LACTATED RINGER'S 1,000 ML IV SCH (12:55)
--- NOTE | 2024-04-21 15:50 | Hospitalist Consultation ---
<Statement entered by Eliseo Coles DO - 04/21/24 16:55> I have seen and examined the patient and have discussed the case with the provider above. I have reviewed the advanced practitioner's documentation, and I agree with, and take responsibility for that plan of care. 7 minutes spent coordination of care with QUINTIN Patient seen and examined at bedside. Pain is controlled. Plan of care as outlined below Date of Consultation April 21, 2024 Assessment & Plan (1) Cervical stenosis of spinal canal: POD#0 C5-C6 A[address]F [address] Dr[address] Arshad Activity and wound care orders as per ortho Pain control with bowel regimen PT/OT Monitor H/H for acute blood loss anemia and transfuse blood products PRN EBL 25cc DVT PROPHYLAXIS NINA/SCDs as per spine Ortho Patient seen in collaboration with Dr. Coles. Thank you for this consultation. We will follow the patient with you during their hospital stay. You can reach a member of the [place] Hospitalist Team 29/03 via the [place] Hospitalist role in [place] Text. History of Present Illness Reason for Consultation: postop medical management Requesting Physician: Dr. Arshad Attending Physician: Chidi Arshad DO History of Present Illness 73-year-old female without significant past medical history who is s/p C5-C6 ACDF by Dr. Arshad. Postoperatively, the patient is doing well. She reports her pain is well-controlled. Denies shortness of breath or difficulty swallowing. Denies any numbness, tingling, weakness to the upper extremities. No chest pain. Denies lightheadedness and dizziness. No abdominal pain or nausea. Allergies Allergy/AdvReac Type Severity Reaction Status Date / Time No Known Allergies Allergy Verified 04/21/24 06:24 Home Medications Medication Instructions Recorded Confirmed Type naproxen sodium 220 mg tablet 220 mg PO DAILY PRN Pain 03/20/20 04/21/24 History (Aleve) multivitamin 1 tab PO QAM 03/31/24 04/21/24 History oxycodone 5 mg tablet 5 mg PO Q6H PRN pain #20 tabs 04/21/24 Rx tramadol 50 mg tablet 50 mg PO Q6H PRN pain, moderate 04/21/24 Rx #20 tabs Patient History Medical History Cervical herniated disc Cervical radiculopathy Right arm pain and weakness Chronic obstructive pulmonary disease "Well controlled" History of COVID-19 07/2021: severe flu-like symptoms with severe fatigue > resolved Surgical History H/O right cataract extraction History of bilateral tubal ligation History of carpal tunnel release R/L History of colonoscopy History of left cataract surgery History of tooth extraction Full upper plate Hx of bladder repair surgery with sling S/P epidural steroid injection cervical Family History Other No family history of adverse response to anesthesia Social History Smoking Status: Current every day smoker Tobacco Type: Cigarettes Cigarettes Per Day: 6-7 cigarettes/day (trying to decrease); Second Hand Exposure: No; Do You Dip or Chew Tobacco: No; Tobacco Cessation Education Requested by Patient: No Hx Alcohol Use: Yes Alcohol type: wine Hx Substance Use: No Preferred Language: Moldovan Communication Ability: Effective Tool Maintenance Worker Required: No Beliefs That Will Affect Care: None Current Living Situation: Alone Other Information That Helps Us Care for You: No Feels Safe at Home: Yes Safety Concerns: Feels Safe At This Time Assistive Devices: Denture - Upper and Glasses Review of Systems Review of Systems: ROS per HPI, all other systems reviewed and negative Physical Exam Constitutional: WD/WN, vitals as above no acute distress Eyes: PERRL, conjunctivae normal, anicteric sclerae ENMT: external ear and nose normal, oropharynx normal Neck: Cervical collar in place, anterior neck dressing CDI, drain in place draining bloody drainage Respiratory: normal respiratory effort, lungs clear to auscultation Cardiovascular: Rate/Rhythm: regular rate and regular rhythm Vessels: normal peripheral pulses Extremities: no edema Gastrointestinal (Abdomen): normal bowel sounds, soft, nontender, no hepatosplenomegaly Musculoskeletal: no cyanosis or clubbing, extremities motor strength 5/5 strength strong and equal bilateral upper extremities Skin: no rashes, warm and dry Neurologic: PERRL, EOMI, accommodation nl, no face palsy, no dysarthria Psychiatric: A+Ox3, euthymic affect Results & Data Results & Data Vital Signs (Past 12 Hours) Vital Signs Temp Pulse Pulse Resp BP BP Pulse Ox 04/21/24 15:03 36.6 C 83 16 160/69 H 96 04/21/24 13:15 74 18 95 04/21/24 13:00 36.5 C 18 135/81 92 04/21/24 12:30 36.8 C 63 16 133/64 95 04/21/24 12:00 80 18 125/84 94 04/21/24 11:30 62 12 130/65 97 04/21/24 11:15 65 12 144/60 H 97 04/21/24 11:00 62 11 L 145/73 H 96 04/21/24 10:45 62 10 L 152/71 H 96 04/21/24 10:30 63 12 156/69 H 97 04/21/24 10:25 36.3 C L 67 12 165/66 H 96 04/21/24 10:15 65 12 147/79 H 96 04/21/24 10:05 63 12 154/61 H 96 04/21/24 09:55 66 10 L 162/71 H 92 04/21/24 09:45 64 12 152/70 H 96 04/21/24 09:35 66 12 170/73 H 97 04/21/24 09:25 67 12 191/75 H 100 04/21/24 09:18 36.0 C L 69 14 173/74 H 95 04/21/24 06:36 36.6 C 68 18 164/89 H 97 O2 Del Method O2 Flow Rate 04/21/24 15:03 Room Air 04/21/24 13:15 Room Air 04/21/24 13:00 Room Air 04/21/24 12:30 Nasal Cannula 2 04/21/24 12:00 Nasal Cannula 2 04/21/24 11:30 Nasal Cannula 3 04/21/24 11:15 Nasal Cannula 3 04/21/24 11:00 Nasal Cannula 3 04/21/24 10:45 Nasal Cannula 3 04/21/24 10:30 Nasal Cannula 3 04/21/24 10:25 Nasal Cannula 3 04/21/24 10:15 Nasal Cannula 3 04/21/24 10:05 Nasal Cannula 3 04/21/24 09:55 Nasal Cannula 3 04/21/24 09:45 Oxymask 3 04/21/24 09:35 Oxymask 4 04/21/24 09:25 Oxymask 6 04/21/24 09:18 Oxymask 6 04/21/24 06:36 Room Air
[2024-04-21] MEDS: ceFAZolin 1000MG 1,000 MG/7.5 ML SYR IV SCH (16:20)
[2024-04-21] MEDS: DOCUSATE SODIUM/SENNA 50/8.6MG TAB PO SCH (20:16)
[2024-04-21] MEDS: oxyCODONE HCL IR 5 MG TAB (IMMEDIATE RELEASE) PO PRN (23:44)
[2024-04-22] MEDS: POLYETHYLENE (MIRALAX) 17 GM PACK PO SCH (05:49)
[2024-04-22] MEDS: MULTIVITAMIN TAB PO SCH (08:46)
--- NOTE | 2024-04-22 09:24 | Hospitalist Progress Note ---
Date of Service April 22, 2024 Assessment & Plan (1) Cervical stenosis of spinal canal: Plan POD#1 C5-C6 ACDF by Dr. Arshad Activity and wound care orders as per ortho Pain control with bowel regimen PT/OT EBL 25cc; monitor NED output. Tobacco use disorder- patient smokes 1 ppd; patient to be started on nicotine patch and gum after discharge. Follow up with PCP. DVT PROPHYLAXIS NINA/SCDs as per spine Ortho Please note the above document was generated using voice recognition software. It may contain grammatical, syntax or spelling errors. Any formal questions or concerns about the content, text or information contained within the body of this dictation should be directly addressed to the provider for clarification Admission and Anticipated Discharge Date Admission Date: April 21, 2024 Subjective Patient seen and examined at bedside. Comfortable; not in distress. Denies fever, chills, chest pain, shortness of breath, abdominal pain or urinary symptoms. No significant overnight events Review of Systems Review of Systems: All systems reviewed & are unremarkable except as noted in Subjective Physical Exam Physical Exam: Constitutional: AOX 3; not in any distress Neck: cervicall collar in place Respiratory: normal respiratory effort, lungs clear to auscultation, no wheeze, rales, rhonchi. Normal insp/exp effort, no accessory muscle use Cardiovascular: RRR, no murmur, no edema Vessels: no JVD or carotid bruit Chest: normal inspection of chest Abdomen: normal bowel sounds, soft, nontender, no hepatosplenomegaly Musculoskeletal: no cyanosis or clubbing, extremities motor strength 5/5 Skin: no rashes, warm and dry normal turgor Psychiatric: A+Ox3, euthymic affect Results & Data Results & Data Vital Signs (Past 12 Hours) Vital Signs Temp Pulse Pulse Resp BP Pulse Ox O2 Del Method 04/22/24 07:45 36.7 C 58 L 20 155/72 H 97 Room Air 04/22/24 07:21 65 16 96 Room Air 04/22/24 05:47 36.5 C 69 18 147/75 H 95 Room Air 04/22/24 03:44 36.6 C 68 16 163/74 H 96 Room Air 04/22/24 01:39 36.6 C 67 16 162/77 H 94 Room Air 04/21/24 23:41 36.8 C 69 16 171/73 H 94 Room Air 04/21/24 22:51 76 16 94 Room Air 04/21/24 21:28 36.5 C 87 16 178/81 H 95 Room Air
--- NOTE | 2024-04-22 09:52 | Discharge Summary ---
Date of Service April 22, 2024 Admission HPI Per Admitting Provider This is a 73-year-old female presents with chronic persistent neck and arm pain after failing course of nonoperative care she is here for surgical invention. Principal Diagnosis Cervical spinal stenosis with radiculopathy Discharge Data Allergies Allergy/AdvReac Type Severity Reaction Status Date / Time No Known Allergies Allergy Verified 04/21/24 06:24 Consultations 04/21/24 11:18 Consult Hospitalist Routine Procedures Performed Operation Date: 04/21/24 07:45 Actual Procedures p C5-C6 Anterior Cervical Discectomy and Fusion(Not Applicable) - Chidi Arshad DO Ordered Studies 04/21/24 07:45 FL cervical 2-3V Routine Hospital Course (1) Cervical stenosis of spinal canal: Patient underwent anterior cervical discectomy and fusion tolerated this well was taken to orthopedic for postoperative. Postop patient progressed appropriately. NED drain decreasing. Strength intact no numbness or tingling swallowing well. No hoarseness. Pain well-controlled. Subsidy discharged home. Discharge orders and instructions from the chart for further review. Total Time Total Time Spent Total Time Spent (In Minutes): 20 minutes Discharge Plan Discharge Items Patient Disposition: Home - Self-Care Reason For Visit: Cervical Disc Disease, Cervical Spondylosis, [place] Discharge Diagnosis: Cervical spinal stenosis Activity: As commented below Non-emergency contact: Primary Care Provider Call non-emergency contact if: you have any medication questions Follow-up/Referrals: Lisa Villarreal MD [Primary Care Provider] - Diet: Regular Addtl Attending Provider Instructions: ACTIVITY RECOMMENDATIONS: SELF CARE INSTRUCTIONS AFTER CERVICAL FUSIONS 1. No smoking. Smoking drastically decreases the chance of a solid fusion. 2. No bending, lifting more than 5 pounds, or twisting (roll like a log when turning in bed). 3. You may shower 3 days after surgery. Thoroughly dry wound. Do not soak in the tub. 4. Cervical collar: Must be worn at all times including sleeping. You may remove the brace only to bath, eat and if you are sitting in a recliner. 5. Please walk as much as you can for exercise. Gradually increase the distance that you walk as your endurance increases. SPECIAL CARE INSTRUCTIONS: VERY IMPORTANT TO READ AND REVIEW A. Do not take any anti-inflammatory medications (i.e. Indocin, Advil, Aspirin, Naprosyn, Aleve, Motrin, etc.) as these may inhibit the chance of a solid fusion. Tylenol is okay to take. B. Your surgical incision has been closed with a cosmetic suture under the skin that will dissolve in about 6 weeks. In 14 days, you can use a pair of clean scissors and cut the suture that is left outside of the skin at the ends of your incision. C. Complications are uncommon, but please contact us if you have any signs or symptoms of: 1. wound infection (fever higher than 102.5 degrees F, redness, separation of wound, drainage, or increasing pain from the incision) 2. blood clots in legs (pain, swelling, redness and warmth in legs) 3. urinary tract infection (fever higher than 102.5 degrees, burning upon urination or increased frequency of urination) 4. nerve problems (inability to walk on your toes or heels, numbness, loss of bowel or bladder control) 5. any other symptoms that concern you. D. Please call the office at if you have any concerns or questions about your operation or recovery. MANAGING PAIN AFTER SPINAL SURGERY 1. Narcotic medication is intended for short-term use and will be provided for surgical pain. Surgical pain usually lasts for a period of 4-6 weeks. Narcotic medication includes Percocet, Vicodin, Darvocet, Tylenol #3 or Lortab. 2. Longer-term pain is more appropriately treated with non-narcotic medication such as Tylenol ES. 3. Muscle spasm is not appropriately treated with narcotics. Muscle relaxers such as Soma, Flexeril or Skelaxin can be used along with Tylenol ES. 4. Remember that we all live with some "aches and pains". This is not unusual or uncommon after an injury or as we get older. 5. We will provide appropriate medication within the normal guidelines of their prescribed use. We will also be very cautious and aware of potential abuse and extended duration of patients' medication needs. 6. Please allow 2-3 days to process refills. Prescriptions will not be mailed but must be picked up at the office. FOLLOW UP VISIT: Keep your scheduled follow-up appointment. Any questions, please call the office at . Pending Studies at Discharge: No Stand-Alone Forms: [employer], Smoking Cessation Medications and DC Order Prescriptions: New tramadol 50 mg tablet 50 mg PO Q6H PRN (Reason: pain, moderate) Qty: 20 0RF oxycodone 5 mg tablet 5 mg PO Q6H PRN (Reason: pain) Qty: 20 0RF Continued multivitamin Tablet 1 tab PO QAM Discontinued naproxen sodium [Aleve] 220 mg Tablet 220 mg PO DAILY PRN (Reason: Pain) Discharge Orders: Discharge Order (Routine); Ordered 04/22/24 Ordered By: Chidi Arshad Admission Data Admit Date/Time: 04/21/24 09:05 Attending Provider: Chidi Arshad Admit Provider: Chidi Arshad Primary Care Provider: Lisa Villarreal Other Providers: Zeinab Emery
[2024-04-22 12:43] VITALS: BP 167/75; PULSE 77; RESP 16; TEMP 98.6; O2SAT 95
== END 2024-04-22 13:48 | disposition home or self-care (01) | DRG 473 ==
LOC: ASU 06:06 → PACUINP 09:05 → 3E 12:59